=== PATIENT | male | born 1955 | race Caucasian/White ===

== ENCOUNTER 2017-07-01 12:23 | Emergency (ER) | payer OTHER ==
[~2017-07-01] VITALS: Ht 165.1 cm; Wt 96.8 kg
[~2017-07-01 12:23] MED LIST: ENAL20TA46 PO
[2017-07-01 12:32] VITALS: BP 125/71
--- NOTE | 2017-07-01 12:39 | NUR ---
Patient ambulated to bed 06.
--- NOTE | 2017-07-01 12:48 | NUR ---
PATIENT PRESENTS TO ED WITH C/O LEFT SHOULDER PAIN X 3 DAYS DENIES RECENT INJURY/TRAUMA UNABLE TO LIFT ARM PAST CHEST ---+RADIAL PULSE <3 SEC CAP REFILL HX--HTN, ARTHRITIS, ANXIETY RX--ENALAPRIL, XANAX, TYLENOL; DENIES N/V/D; SKIN IS PINK/WARM/DRY; AAOX4 WITH EVEN AND STEADY GAIT; LUNGS CLEAR BL; HR EVEN AND REGULAR; PT DENIES ANY FEVER, CP, SOB, OR COUGH AT THIS TIME; PATIENT STATES PAIN OF 9/10 AT THIS TIME; VSS; PATIENT POSITIONED FOR COMFORT; HOB ELEVATED; BEDRAILS UP X2; BED DOWN. ER MD MADE AWARE OF PT STATUS.
--- NOTE | 2017-07-01 13:42 | NUR ---
DR VILLATORO EVALUATING AAO PT WITH AT BEDSIDE
[2017-07-01] MEDS ORDERED: MORPHINE SULFATE 4 MG/ML SYR IM ONE (13:45)
[2017-07-01 14:24] VITALS: BP 125/77
--- NOTE | 2017-07-01 14:24 | NUR ---
Patient discharged with v/s stable. Written and verbal after care instructions given and explained. Patient alert, oriented and verbalized understanding of instructions. Ambulatory with steady gait. All questions addressed prior to discharge. ID band removed. Patient advised to follow up with PMD. Rx of NORCO 5MG-325MG given. Patient educated on indication of medication including possible reaction and side effects. Opportunity to ask questions provided and answered.
== END 2017-07-01 14:24 | disposition home or self-care (01) ==
LOC: MED 12:23
DX: M25.512 Pain in left shoulder (principal); I10 Essential (primary) hypertension; Z79.899 Other long term (current) drug therapy; Z88.8 Allergy status to other drugs, medicaments and biological substances
CPT/HCPCS: 96372; 99283; J2270

== ENCOUNTER 2018-04-03 13:05 | Emergency (ER) | payer MEDICAID, OTHER ==
[~2018-04-03] VITALS: Ht 167.6 cm; Wt 93.0 kg
[2018-04-03 13:14] VITALS: BP 143/97
--- NOTE | 2018-04-03 13:21 | NUR ---
PT AMBULATED TO ER BED 03.
--- NOTE | 2018-04-03 13:30 | NUR ---
8O/M PRESENT TO ER C/O 05/15 BL LOWER BACK PAIN x 2 DAYS. PT STATES HE FELL FROM STANDING POSITION AND LANDED ON HIS BACK, DENIES KO/LOC. PT DENIES ANY BOWEL OR URINARY INCONTINENCE. PT WITH STEADY GAIT. PT IS AOX4 TO PERSON, PLACE, SITUATION, AND TIME. RR ARE EVEN AND UNLABORED. NAD. AWAITING ER MD JOE. ALL NEEDS MET AT THIS TIME.
--- NOTE | 2018-04-03 14:35 | NUR ---
Patient being evaluated by DR POWELL at bedside.
[2018-04-03] MEDS ORDERED: ACETAMINOPHEN EXTRA STRENGTH 500 MG TAB PO ONE (14:45)
[2018-04-03] MEDS ORDERED: KETOROLAC 30 MG/ML VIAL IM ONE (14:45)
[2018-04-03 16:03] VITALS: BP 120/58
== END 2018-04-03 16:04 | disposition home or self-care (01) ==
LOC: MED 13:05
DX: M51.36 Other intervertebral disc degeneration, lumbar region (principal); I10 Essential (primary) hypertension
CPT/HCPCS: 72100; 96372; 99284; J1885

== ENCOUNTER 2018-10-15 19:54 | Emergency (ER) | payer MEDICAID, OTHER ==
[~2018-10-15] VITALS: Ht 167.6 cm; Wt 93.0 kg
[2018-10-15 20:42] VITALS: BP 127/73
--- NOTE | 2018-10-15 20:47 | NUR ---
AMBULATED TO LOBBY WITH VSS.
--- NOTE | 2018-10-15 22:01 | NUR ---
PT AMBULATED TO BED 4
[2018-10-15] MEDS ORDERED: fentaNYL 0.05 MG/ML VIAL IM ONE (22:20)
--- NOTE | 2018-10-15 22:59 | NUR ---
PT PRESENTS TO ED FOR EVALUATION OF TESTIS PAIN X 3 DAYS. PT AAO X4, GCS 15, ABLE TO SPEAK WITH FULL COMPLETE SENTENCES. RESPIATIONS EVEN AND UNLABORED, BL LUNG CLEAR. SKIN WAMR/PINK/DRY, +PMSC. ABDOMEN ROUND, SOFT, NON DISTENDED, ACTIVE BOWEL SOUND X4. TESTIS SWOLLEN, HARD AND WARM TO TOUCH, REDNESS, PAIN 10/10. VSS, DR. PEÑA MADE AWARE OF PT STATUS. WILL CONTINEU TO MONITOR
--- NOTE | 2018-10-16 00:16 | NUR ---
Patient discharged with v/s stable. Written and verbal after care instructions given and explained. Patient alert, oriented and verbalized understanding of instructions. Ambulatory with steady gait. All questions addressed prior to discharge. ID band removed. Patient advised to follow up with PMD. Rx of NORCO 5 MG, DOXY 100 MG given. Patient educated on indication of medication including possible reaction and side effects. Opportunity to ask questions provided and answered.
[2018-10-16 00:17] VITALS: BP 110/60
== END 2018-10-16 00:16 | disposition home or self-care (01) ==
LOC: MED 19:57
DX: N45.1 Epididymitis (principal); I10 Essential (primary) hypertension; Z79.899 Other long term (current) drug therapy
CPT/HCPCS: 76870; 81002; 96372; 99284; J3010; Q0092

== ENCOUNTER 2018-12-04 17:05 | Emergency (ER) | payer OTHER ==
[~2018-12-04] VITALS: Ht 167.6 cm; Wt 90.0 kg
[2018-12-04 17:08] VITALS: BP 164/108
--- NOTE | 2018-12-04 17:14 | NUR ---
BIB SELF. AAO X4. C/O R KNEE SWOLLEN & PAIN OF 9/10 RADIATING TO R LOWER LEG & R HIP X 1 WEEK. PT STATED RAN OUT OF MED X 2DAYS. +MOVEMENT, CAP REFILL <3 SECS. EQUAL LANEY STRENGTH TO LOWER EXTREMITIES. DENIES SOB. HOB UP. BED SIDE RAILS UP X1. ON LOW BED POSITION, LOCKED. ER MADE AWARE OF PT STATUS.
--- NOTE | 2018-12-04 17:40 | NUR ---
PA AT BEDSIDE FOR PT EVALUATION
[2018-12-04] MEDS ORDERED: KETOROLAC 30 MG/ML VIAL IM ONE (17:45)
--- NOTE | 2018-12-04 19:09 | NUR ---
Pt report given to RAQUEL Doshi. Transfer of care at this time.
--- NOTE | 2018-12-04 19:10 | NUR ---
RECEIVED REPORT FROM RAQUEL MOSELEY.
[2018-12-04 19:14] VITALS: BP 149/90
--- NOTE | 2018-12-04 19:14 | NUR ---
Patient discharged with v/s stable. Written and verbal after care instructions given and explained. Patient alert, oriented and verbalized understanding of instructions. Ambulatory with steady gait. All questions addressed prior to discharge. ID band removed. Patient advised to follow up with PMD. Rx of Volatren and Naproxyn given. Patient educated on indication of medication including possible reaction and side effects. Opportunity to ask questions provided and answered.
== END 2018-12-04 19:14 | disposition home or self-care (01) ==
LOC: MED 17:05
DX: M13.861 Other specified arthritis, right knee (principal); I10 Essential (primary) hypertension; Z79.899 Other long term (current) drug therapy
CPT/HCPCS: 73562; 96372; 99283; J1885

== ENCOUNTER 2019-05-24 16:39 | Emergency (ER) | payer OTHER ==
[~2019-05-24] VITALS: Ht 157.5 cm; Wt 77.7 kg
[2019-05-24 16:46] VITALS: BP 125/93
[2019-05-24] MEDS ORDERED: LIDOCAINE/EPI 1% 1:100000 20 ML VIAL INJ ONE (17:40)
[2019-05-24 20:16] VITALS: BP 141/76
== END 2019-05-24 20:15 | disposition home or self-care (01) ==
LOC: MED 16:39
DX: L02.612 Cutaneous abscess of left foot (principal); I10 Essential (primary) hypertension; Z79.899 Other long term (current) drug therapy
CPT/HCPCS: 10060; 99283; J2001

== ENCOUNTER 2021-10-31 11:25 | Emergency (ER) | payer MEDICAID, OTHER ==
[~2021-10-31] VITALS: Ht 167.6 cm; Wt 87.5 kg
[2021-10-31 11:30] VITALS: BP 158/95
[2021-10-31] MEDS ORDERED: HYDROcodone/APAP 5/325 MG 1 TAB TAB PO ONE (12:25)
[2021-10-31] MEDS ORDERED: ACET-8386 PO (13:02)
[2021-10-31 13:19] VITALS: BP 158/95
== END 2021-10-31 13:19 | disposition home or self-care (01) ==
LOC: MED 11:25
DX: R51.9 Headache, unspecified (principal); M25.532 Pain in left wrist; I10 Essential (primary) hypertension; Z79.899 Other long term (current) drug therapy; Y04.2XXA Assault by strike against or bumped into by another person, initial encounter; Y93.89 Activity, other specified; Y92.89 Other specified places as the place of occurrence of the external cause; Y99.8 Other external cause status
CPT/HCPCS: 73110; 99283